=== PATIENT | male | born 1930 | race Caucasian/White ===

== ENCOUNTER 2017-05-25 14:41 | Emergency (ER) | payer MEDICARE ==
[~2017-05-25] VITALS: Ht 177.8 cm; Wt 113.6 kg
[2017-05-25] MEDS ORDERED: HYDROcodone/acetaminophen 10/325mg tab PO ONE (15:50)
[2017-05-25] MEDS ORDERED: BUPIVAcaine 0.5% inj/PF 30 ml vial IJ ONE (16:05)
[2017-05-25] MEDS ORDERED: TETanus/Pertussis (Acell)/Diphther VAC/PF (Tdap-Adult) 0.5ml syringe IM ONE (16:05)
[2017-05-25] MEDS ORDERED: CEPH500C5 PO (17:55)
[2017-05-25] MEDS ORDERED: ACET1TAB12 PO (17:56)
[2017-05-25 18:37] VITALS: BP 149/74
== END 2017-05-25 19:08 | disposition home or self-care (01) ==
LOC: ER 14:41
DX: S01.81XA Laceration without foreign body of other part of head, initial encounter (principal); S51.012A Laceration without foreign body of left elbow, initial encounter; R07.81 Pleurodynia; M54.2 Cervicalgia; M25.531 Pain in right wrist; M25.511 Pain in right shoulder; Z86.718 Personal history of other venous thrombosis and embolism; Z79.899 Other long term (current) drug therapy; W01.198A Fall on same level from slipping, tripping and stumbling with subsequent striking against other object, initial encounter; Y93.89 Activity, other specified; Y92.89 Other specified places as the place of occurrence of the external cause; Y99.8 Other external cause status
CPT/HCPCS: 12011; 29125; 70450; 70486; 72125; 73030; 73110; 82948; 90471; 90715; 99284; A6255; A6446; A6449; J3490; 12001; L0172

== ENCOUNTER 2017-06-03 16:11 | Emergency (ER) | payer MEDICARE ==
[~2017-06-03] VITALS: Ht 167.6 cm; Wt 111.4 kg
[~2017-06-03 16:11] MED LIST: ACET1TAB12 PO; CEPH500C5 PO
[2017-06-03] MEDS ORDERED: methylPREDNISolone sod succ 125mg/2ml vial IV ONE (18:20)
[2017-06-03] MEDS: ipratropium/albuterol 3ml nebule NEB ONE ×2 (18:35→18:48)
[2017-06-03 20:30] VITALS: BP 153/67
== END 2017-06-03 20:33 | disposition short-term general hospital (02) ==
LOC: ER 16:12
DX: S12.9XXA Fracture of neck, unspecified, initial encounter (principal); S00.03XA Contusion of scalp, initial encounter; E11.9 Type 2 diabetes mellitus without complications; Z86.718 Personal history of other venous thrombosis and embolism; Z79.899 Other long term (current) drug therapy; X58.XXXA Exposure to other specified factors, initial encounter; Y93.89 Activity, other specified; Y92.89 Other specified places as the place of occurrence of the external cause; Y99.8 Other external cause status
CPT/HCPCS: 72125; 82948; 99291; L0172

== ENCOUNTER 2017-06-11 07:11 | Outpatient (CLI) | payer MEDICARE | END 2017-06-11 23:59 | disposition home or self-care (01) | LOC: DIABETIC 07:11 | PROVIDERS: ATTEND Specialist | DX: E11.22 Type 2 diabetes mellitus with diabetic chronic kidney disease (principal); N18.9 Chronic kidney disease, unspecified; I50.9 Heart failure, unspecified | CPT/HCPCS: G0108 ==

== ENCOUNTER 2017-09-10 04:49 | Outpatient (CLI) | payer MEDICARE | END 2017-09-10 23:59 | disposition home or self-care (01) | LOC: DIABETIC 04:49 | PROVIDERS: ATTEND Specialist | DX: E11.9 Type 2 diabetes mellitus without complications (principal); I50.9 Heart failure, unspecified | CPT/HCPCS: G0108 ==

== ENCOUNTER 2018-02-04 02:17 | Outpatient (CLI) | payer MEDICARE | END 2018-02-04 23:59 | disposition home or self-care (01) | LOC: DIABETIC 02:17 | PROVIDERS: ATTEND Specialist | DX: E11.9 Type 2 diabetes mellitus without complications (principal); I50.9 Heart failure, unspecified; Z79.4 Long term (current) use of insulin; Z79.84 Long term (current) use of oral hypoglycemic drugs; Z96.651 Presence of right artificial knee joint | CPT/HCPCS: G0108 ==

== ENCOUNTER 2018-03-27 15:48 | Inpatient (IN) | payer MEDICARE ==
[2018-03-27] VITALS (7 sets, daily range): BP systolic 126–150; BP diastolic 44–78
[~2018-03-27] VITALS: Ht 177.8 cm; Wt 96.8 kg
[2018-03-27] MEDS ORDERED: aspirin 325mg tablet PO ONE (16:05)
[2018-03-27 16:17] LABS: BASOPHILS % (AUTO) 0.1 % (0-1); EOSINOPHILS # (AUTO) 0.3 X10'3 (0-0.9); EOSINOPHILS % (AUTO) 2.5 % (0-6); LYMPHOCYTES # (AUTO) 2.1 X10'3 (1.1-4.8); LYMPHOCYTES % (AUTO) 19.1 % (21-51); MEAN CORPUSCULAR HEMOGLOBIN 29.5 PG (27.0-31.0); MEAN CORPUSCULAR HGB CONC 31.6 % (33.0-36.5); MEAN CORPUSCULAR VOLUME 93.2 FL (78-98); MEAN PLATELET VOLUME 9.3 FL (7.4-10.4); MONOCYTES # (AUTO) 0.9 X10'3 (0-0.9); MONOCYTES % (AUTO) 7.7 % (2-12); NEUTROPHILS # (AUTO) 7.9 X10'3 (1.8-7.7); NEUTROPHILS % (AUTO) 70.6 % (42-75); PLATELET COUNT 197 X10'3 (140-440); RED BLOOD COUNT 2.34 X10'6 (4.70-6.10); RED CELL DISTRIBUTION WIDTH 20.2 % (11.5-14.5); WHITE BLOOD COUNT 11.1 X10'3 (4.5-11.0)
[2018-03-27 16:26] LABS: HEMOGLOBIN 6.9 g/dl (14.0-17.9)
[2018-03-27 16:27] LABS: HEMATOCRIT 21.8 % (42.0-52.0)
[2018-03-27 16:30] LABS: ANISOCYTOSIS 2+; INR 3.3 INR; PARTIAL THROMBOPLASTIN TIME 35 SECONDS (22-32); PLATELET ESTIMATE NORMAL; POLYCHROMASIA 1+; PROTHROMBIN TIME 31.2 SECONDS (9.0-12.0)
[2018-03-27 16:31] LABS: ALANINE AMINOTRANSFERASE 31 U/L (12-78); ALBUMIN 3.3 G/DL (3.4-5.0); ALKALINE PHOSPHATASE 63 IU/L (46-116); ANION GAP 12 (8-16); ASPARTATE AMINO TRANSFERASE 21 U/L (10-37); BILIRUBIN,TOTAL 0.3 MG/DL (0.1-1.0); BLOOD UREA NITROGEN 29 MG/DL (7-18); BUN/CREATININE RATIO 27.9 (5.4-32.0); CALCIUM 9.3 MG/DL (8.5-10.1); CHLORIDE 106 MMOL/L (99-107); CREATININE 1.04 MG/DL (0.60-1.10); GLUCOSE 215 MG/DL (70-104); SODIUM 144 MMOL/L (135-145); TOTAL PROTEIN 6.6 G/DL (6.4-8.2); eGFR 68 ML/MIN
[2018-03-27 16:32] LABS: ACANTHOCYTES FEW; ELLIPTOCYTES 1+; POIKILOCYTOSIS 1+; SCHISTOCYTES FEW; TEAR DROP CELLS FEW
[2018-03-27] MEDS: normal saline 1000ml 1,000 ML IV SCH (17:47)
[2018-03-27] MEDS ORDERED: morphine 2 MG/ML inj. syringe IV PRN (17:50)
[2018-03-27] MEDS ORDERED: docusate sod 100mg capsule PO PRN (17:50)
[2018-03-27] MEDS ORDERED: bisacodyl 10mg suppository rectal RC PRN (17:50)
[2018-03-27] MEDS ORDERED: magnesium 1gm/100ml D5W IVPB 100 ML IV PRN (17:50)
[2018-03-27] MEDS ORDERED: acetaminophen 325mg tablet PO PRN ×2 (17:50)
[2018-03-27] MEDS ORDERED: ondansetron/PF 4mg/2ml inj IV PRN (17:50)
[2018-03-27] MEDS ORDERED: magnesium Cl slow-release 64mg tablet PO PRN (17:50)
[2018-03-27] MEDS ORDERED: magnesium 4gm in 100ml NS 100 ML IV PRN (17:50)
[2018-03-27] MEDS ORDERED: HYDROcodone/acetaminophen 5mg/325mg tablet PO PRN (17:50)
[2018-03-27] MEDS ORDERED: potassium Cl 20 mEq SR tablet PO PRN ×2 (17:50)
[2018-03-27] MEDS ORDERED: potassium Cl 40MEQ/NS 500ml 500 ML IV PRN ×2 (17:50)
[2018-03-27] MEDS ORDERED: CARV-50 PO (18:25)
[2018-03-27] MEDS ORDERED: METF500T PO (18:25)
[2018-03-27] MEDS ORDERED: [UNRECOGNIZED DRUG - OTHER] PO (18:25)
[2018-03-27] MEDS ORDERED: AMLO2.5T2 PO (18:25)
[2018-03-27] MEDS ORDERED: ATOR80TA PO (18:25)
[2018-03-27] MEDS ORDERED: COU4T PO (18:25)
[2018-03-27] MEDS ORDERED: TERA2CAP4 PO (18:25)
[2018-03-27] MEDS ORDERED: LEVO175T2 PO (18:25)
[2018-03-27] MEDS ORDERED: FURO40TA4 PO (18:25)
[2018-03-27] MEDS ORDERED: LINA5TAB4 PO (18:25)
[2018-03-27] MEDS ORDERED: DIGO250T PO (18:25)
[2018-03-27 18:42] LABS: OCCULT BLOOD STOOL POSITIVE (Neg)
[2018-03-27] MEDS ORDERED: dextrose 50%-water 50ml dispensing syringe IV PRN ×2 (20:25)
[2018-03-27] MEDS ORDERED: dextrose ORAL solution 15 GM/59 ML bottle PO PRN ×2 (20:25)
[2018-03-27] MEDS ORDERED: glucagon, human recombinant 1mg kit SUBCUT PRN (20:25)
[2018-03-27] MEDS ORDERED: MESSAGE TO PHARMACY PO ONE (20:25)
[2018-03-27] MEDS: insulin glargine (Lantus) pen - multi-dose SQ SCH (21:00)
[2018-03-27] MEDS ORDERED: temazepam 15mg capsule PO PRN (21:00)
[2018-03-27] MEDS: furosemide 40mg/4ml inj IV SCH (23:12)
[2018-03-28 03:00] VITALS: BP 137/52
[2018-03-28 04:49] LABS: BASOPHILS % (AUTO) 0.2 % (0-1); EOSINOPHILS # (AUTO) 0.4 X10'3 (0-0.9); EOSINOPHILS % (AUTO) 3.6 % (0-6); HEMATOCRIT 23.3 % (42.0-52.0); HEMOGLOBIN 7.4 g/dl (14.0-17.9); LYMPHOCYTES # (AUTO) 2.1 X10'3 (1.1-4.8); LYMPHOCYTES % (AUTO) 19.6 % (21-51); MEAN CORPUSCULAR HEMOGLOBIN 29.4 PG (27.0-31.0); MEAN CORPUSCULAR HGB CONC 31.7 % (33.0-36.5); MEAN CORPUSCULAR VOLUME 92.9 FL (78-98); MEAN PLATELET VOLUME 9.5 FL (7.4-10.4); MONOCYTES % (AUTO) 9.1 % (2-12); NEUTROPHILS # (AUTO) 7.3 X10'3 (1.8-7.7); NEUTROPHILS % (AUTO) 67.5 % (42-75); PLATELET COUNT 190 X10'3 (140-440); RED CELL DISTRIBUTION WIDTH 19.1 % (11.5-14.5); WHITE BLOOD COUNT 10.9 X10'3 (4.5-11.0)
[2018-03-28 05:00] LABS: ALANINE AMINOTRANSFERASE 29 U/L (12-78); ALBUMIN 3.2 G/DL (3.4-5.0); ALKALINE PHOSPHATASE 61 IU/L (46-116); ANION GAP 8 (8-16); ASPARTATE AMINO TRANSFERASE 20 U/L (10-37); BILIRUBIN,TOTAL 0.5 MG/DL (0.1-1.0); BLOOD UREA NITROGEN 29 MG/DL (7-18); BUN/CREATININE RATIO 30.2 (5.4-32.0); CALCIUM 9.5 MG/DL (8.5-10.1); CHLORIDE 106 MMOL/L (99-107); CREATININE 0.96 MG/DL (0.60-1.10); GLUCOSE 134 MG/DL (70-104); POTASSIUM 4.4 MMOL/L (3.5-5.1); SODIUM 143 MMOL/L (135-145); TOTAL CARBON DIOXIDE 29.5 MMOL/L (24-32); TOTAL PROTEIN 6.4 G/DL (6.4-8.2); eGFR 74 ML/MIN
[2018-03-28 05:02] LABS: PLATELET ESTIMATE NORMAL
[2018-03-28 05:03] LABS: ANISOCYTOSIS 2+; POLYCHROMASIA FEW
[2018-03-28 05:05] LABS: MAGNESIUM 1.5 MG/DL (1.5-2.4)
[2018-03-28 05:07] LABS: HEMOGLOBIN A1C 7.1 % (4.5-6.2)
[2018-03-28 06:32] LABS: INR 3.6 INR; PROTHROMBIN TIME 34.4 SECONDS (9.0-12.0)
[2018-03-28 07:00] VITALS: BP 148/64
[2018-03-28] MEDS: furosemide 40mg/4ml inj IV SCH ×2 (07:37→20:00)
[2018-03-28] MEDS: K and/or MAG REPLACEMENT MC SCH (08:00)
[2018-03-28 11:00] VITALS: BP 115/52
[2018-03-28] MEDS: HYDROcodone/acetaminophen 10/325mg tab PO PRN (11:43)
[2018-03-28 16:19] VITALS: BP 127/55
[2018-03-28 17:29] LABS: HEMATOCRIT 24.7 % (42.0-52.0); HEMOGLOBIN 7.9 g/dl (14.0-17.9); MEAN CORPUSCULAR HEMOGLOBIN 29.2 PG (27.0-31.0); MEAN CORPUSCULAR HGB CONC 32.1 % (33.0-36.5); MEAN CORPUSCULAR VOLUME 91.1 FL (78-98); MEAN PLATELET VOLUME 9.3 FL (7.4-10.4); PLATELET COUNT 202 X10'3 (140-440); RED BLOOD COUNT 2.71 X10'6 (4.70-6.10); RED CELL DISTRIBUTION WIDTH 18.1 % (11.5-14.5); WHITE BLOOD COUNT 10.7 X10'3 (4.5-11.0)
[2018-03-28 19:00] VITALS: BP 156/58
[2018-03-28] MEDS: pantoprazole 40 MG vial IV SCH (20:01)
[2018-03-28] MEDS: insulin Lispro (HumaLOG) vial - multi-dose SQ SCH (20:12)
[2018-03-28] MEDS: insulin glargine (Lantus) pen - multi-dose SQ SCH (22:28)
[2018-03-28 23:00] VITALS: BP 151/65
[2018-03-29 03:00] VITALS: BP 132/65
[2018-03-29 05:42] LABS: INR 3.1 INR; PROTHROMBIN TIME 29.3 SECONDS (9.0-12.0)
[2018-03-29 05:55] LABS: BASOPHILS % (AUTO) 0.2 % (0-1); EOSINOPHILS # (AUTO) 0.3 X10'3 (0-0.9); HEMATOCRIT 23.9 % (42.0-52.0); HEMOGLOBIN 7.7 g/dl (14.0-17.9); LYMPHOCYTES % (AUTO) 20.3 % (21-51); MEAN CORPUSCULAR HEMOGLOBIN 29.5 PG (27.0-31.0); MEAN CORPUSCULAR HGB CONC 32.1 % (33.0-36.5); MEAN PLATELET VOLUME 9.3 FL (7.4-10.4); MONOCYTES # (AUTO) 0.9 X10'3 (0-0.9); MONOCYTES % (AUTO) 8.7 % (2-12); NEUTROPHILS # (AUTO) 6.8 X10'3 (1.8-7.7); NEUTROPHILS % (AUTO) 67.8 % (42-75); PLATELET COUNT 186 X10'3 (140-440); RED BLOOD COUNT 2.59 X10'6 (4.70-6.10); RED CELL DISTRIBUTION WIDTH 18.3 % (11.5-14.5)
[2018-03-29 05:58] LABS: ALANINE AMINOTRANSFERASE 29 U/L (12-78); ALBUMIN/GLOBULIN RATIO 0.9 (1.1-1.5); ALKALINE PHOSPHATASE 59 IU/L (46-116); ANION GAP 6 (8-16); ASPARTATE AMINO TRANSFERASE 20 U/L (10-37); BILIRUBIN,TOTAL 0.5 MG/DL (0.1-1.0); BLOOD UREA NITROGEN 33 MG/DL (7-18); BUN/CREATININE RATIO 33.3 (5.4-32.0); CALCIUM 8.9 MG/DL (8.5-10.1); CHLORIDE 104 MMOL/L (99-107); CREATININE 0.99 MG/DL (0.60-1.10); GLUCOSE 226 MG/DL (70-104); MAGNESIUM 1.5 MG/DL (1.5-2.4); POTASSIUM 4.4 MMOL/L (3.5-5.1); SODIUM 142 MMOL/L (135-145); TOTAL CARBON DIOXIDE 31.8 MMOL/L (24-32); TOTAL PROTEIN 6.3 G/DL (6.4-8.2); eGFR 72 ML/MIN
[2018-03-29 06:58] LABS: ANISOCYTOSIS 2+; MICROCYTOSIS 1+; PLATELET ESTIMATE NORMAL; POLYCHROMASIA 1+
[2018-03-29 07:00] VITALS: BP 141/68
[2018-03-29] MEDS: atorvastatin 20mg tablet PO SCH (07:35)
[2018-03-29] MEDS: amLODIPine 5mg tablet PO SCH (07:37)
[2018-03-29] MEDS: levoTHYROXINE 175mcg tablet PO SCH (07:37)
[2018-03-29] MEDS: carVEDilol 12.5mg tablet PO SCH ×2 (07:37→20:40)
[2018-03-29] MEDS: furosemide 40mg/4ml inj IV SCH ×2 (07:38→20:39)
[2018-03-29] MEDS: pantoprazole 40 MG vial IV SCH (07:40)
[2018-03-29] MEDS: K and/or MAG REPLACEMENT MC SCH (07:41)
[2018-03-29] MEDS: insulin Lispro (HumaLOG) vial - multi-dose SQ SCH ×3 (08:33→19:26)
[2018-03-29 11:00] VITALS: BP 122/58
[2018-03-29 15:00] VITALS: BP 133/56
[2018-03-29] MEDS: normal saline 1000ml 1,000 ML IV SCH (17:53)
[2018-03-29] MEDS ORDERED: magnesium hydroxide 30ml (MOM) UD suspension PO ONE (18:40)
[2018-03-29 19:00] VITALS: BP 115/60
[2018-03-29] MEDS: Terazosin 1mg capsule PO SCH (20:40)
[2018-03-29] MEDS: pantoprazole 40mg Tablet.DR PO SCH (20:40)
[2018-03-29] MEDS: insulin glargine (Lantus) pen - multi-dose SQ SCH (20:54)
[2018-03-29 23:00] VITALS: BP 122/59
[2018-03-30 03:00] VITALS: BP 122/54
[2018-03-30 06:00] VITALS: BP 136/60
[2018-03-30 06:06] LABS: BASOPHILS % (AUTO) 0.3 % (0-1); EOSINOPHILS # (AUTO) 0.4 X10'3 (0-0.9); EOSINOPHILS % (AUTO) 2.9 % (0-6); HEMATOCRIT 22.9 % (42.0-52.0); HEMOGLOBIN 7.4 g/dl (14.0-17.9); LYMPHOCYTES # (AUTO) 2.5 X10'3 (1.1-4.8); LYMPHOCYTES % (AUTO) 20.5 % (21-51); MEAN CORPUSCULAR HEMOGLOBIN 29.9 PG (27.0-31.0); MEAN CORPUSCULAR HGB CONC 32.2 % (33.0-36.5); MEAN CORPUSCULAR VOLUME 92.7 FL (78-98); MEAN PLATELET VOLUME 9.8 FL (7.4-10.4); MONOCYTES # (AUTO) 0.9 X10'3 (0-0.9); MONOCYTES % (AUTO) 7.5 % (2-12); NEUTROPHILS # (AUTO) 8.5 X10'3 (1.8-7.7); NEUTROPHILS % (AUTO) 68.8 % (42-75); PLATELET COUNT 203 X10'3 (140-440); RED BLOOD COUNT 2.47 X10'6 (4.70-6.10); RED CELL DISTRIBUTION WIDTH 17.9 % (11.5-14.5); WHITE BLOOD COUNT 12.3 X10'3 (4.5-11.0)
[2018-03-30 06:11] LABS: PROTHROMBIN TIME 19.3 SECONDS (9.0-12.0)
[2018-03-30 06:16] LABS: ALANINE AMINOTRANSFERASE 28 U/L (12-78); ALBUMIN 3.1 G/DL (3.4-5.0); ALBUMIN/GLOBULIN RATIO 0.9 (1.1-1.5); ALKALINE PHOSPHATASE 67 IU/L (46-116); ANION GAP 6 (8-16); ASPARTATE AMINO TRANSFERASE 22 U/L (10-37); BILIRUBIN,TOTAL 0.5 MG/DL (0.1-1.0); BLOOD UREA NITROGEN 42 MG/DL (7-18); BUN/CREATININE RATIO 38.9 (5.4-32.0); CALCIUM 8.8 MG/DL (8.5-10.1); CHLORIDE 99 MMOL/L (99-107); CREATININE 1.08 MG/DL (0.60-1.10); GLUCOSE 243 MG/DL (70-104); MAGNESIUM 2.4 MG/DL (1.5-2.4); POTASSIUM 4.1 MMOL/L (3.5-5.1); SODIUM 140 MMOL/L (135-145); TOTAL CARBON DIOXIDE 34.6 MMOL/L (24-32); TOTAL PROTEIN 6.4 G/DL (6.4-8.2); eGFR 65 ML/MIN
[2018-03-30] MEDS: levoTHYROXINE 175mcg tablet PO SCH (07:30)
[2018-03-30] MEDS: carVEDilol 12.5mg tablet PO SCH ×2 (07:30→19:16)
[2018-03-30] MEDS: pantoprazole 40mg Tablet.DR PO SCH ×2 (07:31→19:11)
[2018-03-30] MEDS: atorvastatin 20mg tablet PO SCH (07:31)
[2018-03-30] MEDS: amLODIPine 5mg tablet PO SCH (07:31)
[2018-03-30] MEDS: furosemide 40mg/4ml inj IV SCH ×2 (07:32→19:17)
[2018-03-30] MEDS: K and/or MAG REPLACEMENT MC SCH (08:00)
[2018-03-30] MEDS: insulin Lispro (HumaLOG) vial - multi-dose SQ SCH ×3 (08:15→19:16)
[2018-03-30 11:00] VITALS: BP 111/45
[2018-03-30 15:00] VITALS: BP 101/48
[2018-03-30 19:00] VITALS: BP 106/50
[2018-03-30 23:00] VITALS: BP 120/48
[2018-03-30] MEDS: HYDROcodone/acetaminophen 10/325mg tab PO PRN (23:06)
[2018-03-30] MEDS: Terazosin 1mg capsule PO SCH (23:06)
[2018-03-30] MEDS: insulin glargine (Lantus) pen - multi-dose SQ SCH (23:10)
[2018-03-31] VITALS (12 sets, daily range): BP systolic 112–142; BP diastolic 42–67
[2018-03-31 06:14] LABS: BASOPHILS % (AUTO) 0 % (0-1); EOSINOPHILS # (AUTO) 0.4 X10'3 (0-0.9); EOSINOPHILS % (AUTO) 2.5 % (0-6); LYMPHOCYTES # (AUTO) 3.7 X10'3 (1.1-4.8); LYMPHOCYTES % (AUTO) 24.2 % (21-51); MEAN CORPUSCULAR HEMOGLOBIN 29.9 PG (27.0-31.0); MEAN CORPUSCULAR HGB CONC 32.5 % (33.0-36.5); MEAN PLATELET VOLUME 9.2 FL (7.4-10.4); MONOCYTES # (AUTO) 1.1 X10'3 (0-0.9); NEUTROPHILS % (AUTO) 66.3 % (42-75); PLATELET COUNT 216 X10'3 (140-440); RED BLOOD COUNT 2.13 X10'6 (4.70-6.10); WHITE BLOOD COUNT 15.1 X10'3 (4.5-11.0)
[2018-03-31 06:16] LABS: ALANINE AMINOTRANSFERASE 29 U/L (12-78); ALBUMIN 3.1 G/DL (3.4-5.0); ALKALINE PHOSPHATASE 61 IU/L (46-116); ANION GAP 4 (8-16); ASPARTATE AMINO TRANSFERASE 22 U/L (10-37); BILIRUBIN,TOTAL 0.4 MG/DL (0.1-1.0); CALCIUM 8.5 MG/DL (8.5-10.1); CHLORIDE 99 MMOL/L (99-107); CREATININE 1.19 MG/DL (0.60-1.10); GLUCOSE 222 MG/DL (70-104); MAGNESIUM 2.1 MG/DL (1.5-2.4); POTASSIUM 4.3 MMOL/L (3.5-5.1); SODIUM 138 MMOL/L (135-145); TOTAL CARBON DIOXIDE 35.1 MMOL/L (24-32); TOTAL PROTEIN 6.3 G/DL (6.4-8.2); eGFR 58 ML/MIN
[2018-03-31 06:17] LABS: INR 1.5 INR; PROTHROMBIN TIME 15.1 SECONDS (9.0-12.0)
[2018-03-31 06:20] LABS: BLOOD UREA NITROGEN 45 MG/DL (7-18); BUN/CREATININE RATIO 37.8 (5.4-32.0)
[2018-03-31 06:28] LABS: HEMATOCRIT 19.6 % (42.0-52.0); HEMOGLOBIN 6.4 g/dl (14.0-17.9)
[2018-03-31] MEDS: atorvastatin 20mg tablet PO SCH (07:32)
[2018-03-31] MEDS: carVEDilol 12.5mg tablet PO SCH ×2 (07:32→21:23)
[2018-03-31] MEDS: amLODIPine 5mg tablet PO SCH (07:32)
[2018-03-31] MEDS: levoTHYROXINE 175mcg tablet PO SCH (07:32)
[2018-03-31] MEDS: pantoprazole 40mg Tablet.DR PO SCH ×2 (07:32→21:23)
[2018-03-31] MEDS: furosemide 40mg/4ml inj IV SCH ×2 (07:33→20:00)
[2018-03-31] MEDS: K and/or MAG REPLACEMENT MC SCH (08:00)
[2018-03-31] MEDS: insulin Lispro (HumaLOG) vial - multi-dose SQ SCH ×4 (08:32→21:42)
[2018-03-31 14:34] LABS: BASOPHILS % (AUTO) 0.4 % (0-1); EOSINOPHILS # (AUTO) 0.3 X10'3 (0-0.9); EOSINOPHILS % (AUTO) 2.1 % (0-6); LYMPHOCYTES # (AUTO) 2.3 X10'3 (1.1-4.8); LYMPHOCYTES % (AUTO) 16.9 % (21-51); MEAN CORPUSCULAR HEMOGLOBIN 29.3 PG (27.0-31.0); MEAN CORPUSCULAR HGB CONC 32.2 % (33.0-36.5); MEAN CORPUSCULAR VOLUME 90.9 FL (78-98); MEAN PLATELET VOLUME 9.3 FL (7.4-10.4); MONOCYTES # (AUTO) 0.9 X10'3 (0-0.9); MONOCYTES % (AUTO) 6.8 % (2-12); NEUTROPHILS % (AUTO) 73.8 % (42-75); PLATELET COUNT 207 X10'3 (140-440); RED BLOOD COUNT 2.39 X10'6 (4.70-6.10); RED CELL DISTRIBUTION WIDTH 17.6 % (11.5-14.5); WHITE BLOOD COUNT 13.6 X10'3 (4.5-11.0)
[2018-03-31 14:41] LABS: HEMATOCRIT 21.7 % (42.0-52.0)
[2018-03-31] MEDS: normal saline 1000ml 1,000 ML IV SCH (17:47)
[2018-03-31 20:01] LABS: BASOPHILS % (AUTO) 0.4 % (0-1); EOSINOPHILS # (AUTO) 0.3 X10'3 (0-0.9); EOSINOPHILS % (AUTO) 2.8 % (0-6); HEMATOCRIT 23.6 % (42.0-52.0); HEMOGLOBIN 7.7 g/dl (14.0-17.9); LYMPHOCYTES # (AUTO) 2.2 X10'3 (1.1-4.8); MEAN CORPUSCULAR HEMOGLOBIN 29.2 PG (27.0-31.0); MEAN CORPUSCULAR HGB CONC 32.5 % (33.0-36.5); MEAN CORPUSCULAR VOLUME 89.8 FL (78-98); MEAN PLATELET VOLUME 9.4 FL (7.4-10.4); MONOCYTES % (AUTO) 8.1 % (2-12); NEUTROPHILS # (AUTO) 8.7 X10'3 (1.8-7.7); NEUTROPHILS % (AUTO) 70.7 % (42-75); PLATELET COUNT 201 X10'3 (140-440); RED BLOOD COUNT 2.63 X10'6 (4.70-6.10); RED CELL DISTRIBUTION WIDTH 17.4 % (11.5-14.5); WHITE BLOOD COUNT 12.3 X10'3 (4.5-11.0)
[2018-03-31] MEDS: Terazosin 1mg capsule PO SCH (21:23)
[2018-03-31] MEDS: insulin glargine (Lantus) pen - multi-dose SQ SCH (21:36)
[2018-04-01] VITALS (17 sets, daily range): BP systolic 107–144; BP diastolic 47–74
[2018-04-01] MEDS: HYDROcodone/acetaminophen 10/325mg tab PO PRN (00:35)
[2018-04-01] MEDS: levoTHYROXINE 175mcg tablet PO SCH (07:00)
[2018-04-01] MEDS: pantoprazole 40mg Tablet.DR PO SCH ×2 (07:20→20:31)
[2018-04-01] MEDS: atorvastatin 20mg tablet PO SCH (07:20)
[2018-04-01] MEDS: amLODIPine 5mg tablet PO SCH (07:20)
[2018-04-01] MEDS: furosemide 40mg/4ml inj IV SCH ×3 (07:20→20:00)
[2018-04-01] MEDS: carVEDilol 12.5mg tablet PO SCH ×2 (07:20→20:31)
[2018-04-01] MEDS: K and/or MAG REPLACEMENT MC SCH (08:00)
[2018-04-01] MEDS: insulin Lispro (HumaLOG) vial - multi-dose SQ SCH ×3 (08:11→20:45)
[2018-04-01 09:02] LABS: BASOPHILS % (AUTO) 0.1 % (0-1); EOSINOPHILS # (AUTO) 0.3 X10'3 (0-0.9); HEMATOCRIT 22.5 % (42.0-52.0); HEMOGLOBIN 7.5 g/dl (14.0-17.9); LYMPHOCYTES # (AUTO) 1.8 X10'3 (1.1-4.8); MEAN CORPUSCULAR HEMOGLOBIN 29.4 PG (27.0-31.0); MEAN CORPUSCULAR HGB CONC 33.2 % (33.0-36.5); MEAN CORPUSCULAR VOLUME 88.7 FL (78-98); MEAN PLATELET VOLUME 9.1 FL (7.4-10.4); MONOCYTES # (AUTO) 0.8 X10'3 (0-0.9); MONOCYTES % (AUTO) 8.6 % (2-12); NEUTROPHILS # (AUTO) 6.3 X10'3 (1.8-7.7); NEUTROPHILS % (AUTO) 68.3 % (42-75); PLATELET COUNT 180 X10'3 (140-440); RED BLOOD COUNT 2.54 X10'6 (4.70-6.10); RED CELL DISTRIBUTION WIDTH 16.8 % (11.5-14.5); WHITE BLOOD COUNT 9.2 X10'3 (4.5-11.0)
[2018-04-01 09:23] LABS: ALANINE AMINOTRANSFERASE 30 U/L (12-78); ALBUMIN 2.9 G/DL (3.4-5.0); ALBUMIN/GLOBULIN RATIO 0.9 (1.1-1.5); ALKALINE PHOSPHATASE 69 IU/L (46-116); ANION GAP 6 (8-16); ASPARTATE AMINO TRANSFERASE 21 U/L (10-37); BILIRUBIN,TOTAL 0.6 MG/DL (0.1-1.0); BLOOD UREA NITROGEN 27 MG/DL (7-18); BUN/CREATININE RATIO 24.1 (5.4-32.0); CHLORIDE 100 MMOL/L (99-107); CREATININE 1.12 MG/DL (0.60-1.10); GLUCOSE 221 MG/DL (70-104); POTASSIUM 3.9 MMOL/L (3.5-5.1); SODIUM 139 MMOL/L (135-145); TOTAL CARBON DIOXIDE 32.6 MMOL/L (24-32); TOTAL PROTEIN 6.1 G/DL (6.4-8.2); eGFR 62 ML/MIN
[2018-04-01 09:42] LABS: INR 1.2 INR; PROTHROMBIN TIME 12.3 SECONDS (9.0-12.0)
[2018-04-01] MEDS ORDERED: LIDOcaine Viscous 15ml cup ONE (14:47)
[2018-04-01] MEDS ORDERED: MIDAZolam 5mg/5ml vial ONE (14:47)
[2018-04-01] MEDS ORDERED: fentaNYL/PF 50MCG/1 ML 2ML syringe ONE (14:47)
[2018-04-01] MEDS: Terazosin 1mg capsule PO SCH (20:39)
[2018-04-01] MEDS: insulin glargine (Lantus) pen - multi-dose SQ SCH (23:56)
[2018-04-02 02:00] VITALS: BP 132/59
[2018-04-02 06:59] LABS: ALANINE AMINOTRANSFERASE 33 U/L (12-78); ALBUMIN/GLOBULIN RATIO 0.9 (1.1-1.5); ALKALINE PHOSPHATASE 71 IU/L (46-116); ANION GAP 7 (8-16); ASPARTATE AMINO TRANSFERASE 25 U/L (10-37); BILIRUBIN,TOTAL 0.6 MG/DL (0.1-1.0); BLOOD UREA NITROGEN 23 MG/DL (7-18); BUN/CREATININE RATIO 22.1 (5.4-32.0); CALCIUM 8.4 MG/DL (8.5-10.1); CHLORIDE 100 MMOL/L (99-107); CREATININE 1.04 MG/DL (0.60-1.10); GLUCOSE 205 MG/DL (70-104); POTASSIUM 3.9 MMOL/L (3.5-5.1); SODIUM 140 MMOL/L (135-145); TOTAL CARBON DIOXIDE 33.2 MMOL/L (24-32); TOTAL PROTEIN 6.3 G/DL (6.4-8.2); eGFR 68 ML/MIN
[2018-04-02 07:00] VITALS: BP 125/59
[2018-04-02] MEDS: levoTHYROXINE 175mcg tablet PO SCH (07:33)
[2018-04-02] MEDS: furosemide 40mg/4ml inj IV SCH (07:34)
[2018-04-02] MEDS: atorvastatin 20mg tablet PO SCH (07:34)
[2018-04-02] MEDS: amLODIPine 5mg tablet PO SCH (07:34)
[2018-04-02] MEDS: pantoprazole 40mg Tablet.DR PO SCH (07:34)
[2018-04-02] MEDS: carVEDilol 12.5mg tablet PO SCH (07:34)
[2018-04-02] MEDS: K and/or MAG REPLACEMENT MC SCH (08:00)
[2018-04-02 08:22] LABS: BASOPHILS % (AUTO) 0.3 % (0-1); EOSINOPHILS # (AUTO) 0.2 X10'3 (0-0.9); EOSINOPHILS % (AUTO) 2.8 % (0-6); HEMATOCRIT 24.6 % (42.0-52.0); HEMOGLOBIN 7.9 g/dl (14.0-17.9); LYMPHOCYTES # (AUTO) 1.9 X10'3 (1.1-4.8); LYMPHOCYTES % (AUTO) 22.1 % (21-51); MEAN CORPUSCULAR HGB CONC 32.1 % (33.0-36.5); MEAN CORPUSCULAR VOLUME 90.3 FL (78-98); MEAN PLATELET VOLUME 9.4 FL (7.4-10.4); MONOCYTES # (AUTO) 0.9 X10'3 (0-0.9); NEUTROPHILS # (AUTO) 5.6 X10'3 (1.8-7.7); NEUTROPHILS % (AUTO) 64.8 % (42-75); PLATELET COUNT 193 X10'3 (140-440); RED BLOOD COUNT 2.73 X10'6 (4.70-6.10); WHITE BLOOD COUNT 8.6 X10'3 (4.5-11.0)
[2018-04-02] MEDS: insulin Lispro (HumaLOG) vial - multi-dose SQ SCH (08:44)
[2018-04-02 11:00] VITALS: BP 121/53
[2018-04-02] MEDS ORDERED: PANT-47 PO (11:28)
== END 2018-04-02 14:26 | disposition home or self-care (01) | DRG 378 ==
LOC: ER 15:48 → PCU 3S 17:47 → CMPBEDREQ 03-29 12:17
PROVIDERS: ADMIT Internal Medicine; ATTEND Internal Medicine
PROC: 30233N1 Transfusion of Nonautologous Red Blood Cells into Peripheral Vein, Percutaneous Approach (ICD-10-PCS; principal; 2018-03-27)
PROC: 5A09357 Assistance with Respiratory Ventilation, Less than 24 Consecutive Hours, Continuous Positive Airway Pressure (ICD-10-PCS; 2018-03-27)
PROC: 30233N1 Transfusion of Nonautologous Red Blood Cells into Peripheral Vein, Percutaneous Approach (ICD-10-PCS; 2018-03-28)
PROC: 5A09357 Assistance with Respiratory Ventilation, Less than 24 Consecutive Hours, Continuous Positive Airway Pressure (ICD-10-PCS; 2018-03-28)
PROC: 5A09357 Assistance with Respiratory Ventilation, Less than 24 Consecutive Hours, Continuous Positive Airway Pressure (ICD-10-PCS; 2018-03-29)
PROC: 5A09357 Assistance with Respiratory Ventilation, Less than 24 Consecutive Hours, Continuous Positive Airway Pressure (ICD-10-PCS; 2018-03-30)
PROC: 30233N1 Transfusion of Nonautologous Red Blood Cells into Peripheral Vein, Percutaneous Approach (ICD-10-PCS; 2018-03-31)
PROC: 5A09357 Assistance with Respiratory Ventilation, Less than 24 Consecutive Hours, Continuous Positive Airway Pressure (ICD-10-PCS; 2018-04-01)
PROC: 0DB68ZX Excision of Stomach, Via Natural or Artificial Opening Endoscopic, Diagnostic (ICD-10-PCS; 2018-04-01)
PROC: 5A09357 Assistance with Respiratory Ventilation, Less than 24 Consecutive Hours, Continuous Positive Airway Pressure (ICD-10-PCS; 2018-04-02)
DX: K29.51 Unspecified chronic gastritis with bleeding (principal); D62 Acute posthemorrhagic anemia; K25.4 Chronic or unspecified gastric ulcer with hemorrhage; K29.81 Duodenitis with bleeding; I35.0 Nonrheumatic aortic (valve) stenosis; E03.9 Hypothyroidism, unspecified; E11.9 Type 2 diabetes mellitus without complications; E78.5 Hyperlipidemia, unspecified; G47.33 Obstructive sleep apnea (adult) (pediatric); G89.29 Other chronic pain; M19.011 Primary osteoarthritis, right shoulder; M75.101 Unspecified rotator cuff tear or rupture of right shoulder, not specified as traumatic; I25.10 Atherosclerotic heart disease of native coronary artery without angina pectoris; K31.89 Other diseases of stomach and duodenum; I50.9 Heart failure, unspecified; N40.0 Benign prostatic hyperplasia without lower urinary tract symptoms; R79.1 Abnormal coagulation profile; R74.8 Abnormal levels of other serum enzymes; Z79.899 Other long term (current) drug therapy; Z79.01 Long term (current) use of anticoagulants; Z79.84 Long term (current) use of oral hypoglycemic drugs; Z79.890 Hormone replacement therapy; Z86.718 Personal history of other venous thrombosis and embolism
CPT/HCPCS: 36415; 36430; 43239; 71045; 80053; 82272; 82948; 83036; 83735; 83880; 84484; 85025; 85027; 85610; 85730; 86885; 86900; 86901; 86920; 87070; 88305; 88342; 93005; 99152; 99285; A4620; C9113; G0378; J1815; J1940; J2250; J3010; J7030; P9016

== ENCOUNTER 2018-04-05 15:18 | Emergency (ER) | payer MEDICARE ==
[~2018-04-05] VITALS: Ht 177.8 cm; Wt 102.8 kg
[~2018-04-05 15:18] MED LIST changes: -ACET1TAB12 PO; +AMLO2.5T2 PO; +ATOR80TA PO; +CARV-50 PO; -CEPH500C5 PO; +DIGO250T PO; +FURO40TA4 PO; +LEVO175T2 PO; +LINA5TAB4 PO; +METF500T PO; +PANT-47 PO; +TERA2CAP4 PO; +[UNRECOGNIZED DRUG - OTHER] PO
[2018-04-05 16:57] VITALS: BP 98/42
== END 2018-04-05 17:08 | disposition home or self-care (01) ==
LOC: ER 15:19
DX: I95.1 Orthostatic hypotension (principal); E86.0 Dehydration; I35.0 Nonrheumatic aortic (valve) stenosis; R34 Anuria and oliguria; Z86.718 Personal history of other venous thrombosis and embolism; Z79.84 Long term (current) use of oral hypoglycemic drugs; Z79.01 Long term (current) use of anticoagulants; Z79.899 Other long term (current) drug therapy
CPT/HCPCS: 99284

== ENCOUNTER 2018-04-21 17:03 | Emergency (ER) | payer MEDICARE ==
[~2018-04-21] VITALS: Ht 177.8 cm; Wt 109.0 kg
[2018-04-21] MEDS ORDERED: nitroGLYCERIN-Tridil 50MG/D5W 250 ML IV PRN (17:10)
[2018-04-21] MEDS ORDERED: furosemide 10 MG/1 ML 10ml inj IV ONE (17:10)
[2018-04-21 17:33] LABS: WHITE BLOOD COUNT 14.4 X10'3 (4.5-11.0)
[2018-04-21 17:34] LABS: BASOPHILS # (AUTO) 0.1 X10'3 (0-0.2); BASOPHILS % (AUTO) 0.6 % (0-1); EOSINOPHILS # (AUTO) 0.2 X10'3 (0-0.9); EOSINOPHILS % (AUTO) 1.7 % (0-6); HEMATOCRIT 23.4 % (42.0-52.0); HEMOGLOBIN 7.2 g/dl (14.0-17.9); LYMPHOCYTES # (AUTO) 2.4 X10'3 (1.1-4.8); MEAN CORPUSCULAR HEMOGLOBIN 26.5 PG (27.0-31.0); MEAN CORPUSCULAR VOLUME 85.4 FL (78-98); MEAN PLATELET VOLUME 9.5 FL (7.4-10.4); MONOCYTES # (AUTO) 1.1 X10'3 (0-0.9); MONOCYTES % (AUTO) 7.5 % (2-12); NEUTROPHILS # (AUTO) 10.5 X10'3 (1.8-7.7); NEUTROPHILS % (AUTO) 73.2 % (42-75); PLATELET COUNT 210 X10'3 (140-440); RED BLOOD COUNT 2.74 X10'6 (4.70-6.10); RED CELL DISTRIBUTION WIDTH 16.7 % (11.5-14.5)
[2018-04-21 17:36] LABS: ABG BASE EXCESS -3.2 mmol/L (-2.0-3.0); ABG HCO3 23.1 mmol/L (22.0-26.0); ABG OXYGEN SATURATION 99.2 % (95-98); ABG PCO2 (T) 47.7 mmHg (35.0-48.0); ABG PH (T) 7.302 (7.350-7.450); ABG PO2 (T) 202.4 mmHg (83-108); ALLEN'S TEST Positive; FCOHb 0.9 % (0.5-1.5); FMetHb 0.2 % (0.3-1.12); FO2Hb 98.1 % (94-100); MINUTE VOLUME 20 L/min; PATIENT TEMPERATURE 36.9; RESPIRATORY RATE 20 b/min; RESPIRATORY RATE (OBSERVED) 32 b/min; TOTAL HEMOGLOBIN 7.7 G/dl (14.0-18.0)
[2018-04-21 17:57] LABS: ALANINE AMINOTRANSFERASE 23 U/L (12-78); ALBUMIN 3.4 G/DL (3.4-5.0); ALBUMIN/GLOBULIN RATIO 0.9 (1.1-1.5); ALKALINE PHOSPHATASE 103 IU/L (46-116); ANION GAP 11 (8-16); ASPARTATE AMINO TRANSFERASE 22 U/L (10-37); BILIRUBIN,TOTAL 0.4 MG/DL (0.1-1.0); BLOOD UREA NITROGEN 21 MG/DL (7-18); BUN/CREATININE RATIO 16.4 (5.4-32.0); CALCIUM 9.3 MG/DL (8.5-10.1); CHLORIDE 104 MMOL/L (99-107); CREATININE 1.28 MG/DL (0.60-1.10); GLUCOSE 311 MG/DL (70-104); POTASSIUM 5.9 MMOL/L (3.5-5.1); SODIUM 138 MMOL/L (135-145); TOTAL CARBON DIOXIDE 23.3 MMOL/L (24-32); TOTAL PROTEIN 7.4 G/DL (6.4-8.2); eGFR 53 ML/MIN
[2018-04-21 18:03] LABS: INR 1.1 INR; PARTIAL THROMBOPLASTIN TIME 20 SECONDS (22-32); PROTHROMBIN TIME 11.4 SECONDS (9.0-12.0)
[2018-04-21 18:05] LABS: MAGNESIUM 1.7 MG/DL (1.5-2.4)
[2018-04-21 18:30] VITALS: BP 131/64
[2018-04-21 18:48] LABS: PLATELET ESTIMATE NORMAL
[2018-04-21 18:49] LABS: ANISOCYTOSIS 1+; HYPOCHROMASIA 1+; POIKILOCYTOSIS 2+; POLYCHROMASIA 1+
[2018-04-21 18:51] LABS: ACANTHOCYTES FEW; BURR CELLS FEW; ELLIPTOCYTES 1+
[2018-04-21 18:52] LABS: SCHISTOCYTES 1+; TEAR DROP CELLS 1+
== END 2018-04-21 20:35 | disposition expired ==
LOC: ER 17:03
DX: I46.9 Cardiac arrest, cause unspecified (principal); J96.00 Acute respiratory failure, unspecified whether with hypoxia or hypercapnia; E66.9 Obesity, unspecified; I50.9 Heart failure, unspecified; I35.0 Nonrheumatic aortic (valve) stenosis; Z86.718 Personal history of other venous thrombosis and embolism; Z79.899 Other long term (current) drug therapy
CPT/HCPCS: 36415; 36600; 71045; 80053; 82803; 83735; 83880; 84484; 85018; 85025; 85610; 85730; 93005; 94660; 94760; 96365; 96375; 99291; J1940; J3490